=== PATIENT | male | born 1960 | race Caucasian/White ===

== ENCOUNTER 2024-04-08 12:37 | Outpatient (CLI) | payer MEDICARE, MEDICAID | END 2024-04-08 23:59 | disposition home or self-care (01) | LOC: MRI 12:37 | PROVIDERS: ATTEND Nurse Practitioner Family | DX: M43.12 Spondylolisthesis, cervical region (principal); M25.78 Osteophyte, vertebrae; M48.02 Spinal stenosis, cervical region; M47.22 Other spondylosis with radiculopathy, cervical region | CPT/HCPCS: 72141 ==